=== PATIENT | male | born 1995 | race Two or more races ===

== ENCOUNTER 2017-06-25 15:35 | Emergency (ER) | payer OTHER ==
[~2017-06-25] VITALS: Ht 165.1 cm; Wt 88.0 kg
[2017-06-25 15:57] VITALS: BP 108/67
[2017-06-25] MEDS ORDERED: GLYCOPYRROLATE 0.2 MG/ML VIAL IV ONE ×2 (17:50→18:05)
[2017-06-25] MEDS: NACL 0.9% 1,000 ML IV SCH (18:24)
[2017-06-25] MEDS: ONDANSETRON 4 MG/2 ML VIAL IVP ONE (18:26)
[2017-06-25] MEDS: FAMOTIDINE 20 MG/2 ML VIAL IVP ONE (18:26)
[2017-06-25] MEDS: METOCLOPRAMIDE 10 MG/2 ML INJ VIAL IVP ONE (18:27)
[2017-06-25] MEDS: GLYCOPYRROLATE 0.2 MG/ML VIAL IV ONE (18:28)
[2017-06-25 19:02] VITALS: BP 121/71
== END 2017-06-25 19:00 | disposition home or self-care (01) ==
LOC: MED 15:35
DX: T62.8X1A Toxic effect of other specified noxious substances eaten as food, accidental (unintentional), initial encounter (principal); K52.89 Other specified noninfective gastroenteritis and colitis; Y92.89 Other specified places as the place of occurrence of the external cause
CPT/HCPCS: 36415; 74176; 81003; 85025; 96361; 96374; 96375; 99285; J2405; J2765; J3490; J7030